=== PATIENT | female | born 1990 | race Two or more races ===

== ENCOUNTER 2016-12-21 22:48 | Outpatient (CLI) | payer OTHER ==
[2016-12-21 23:57] VITALS: BMI 35.5
== END 2016-12-21 23:57 | disposition home or self-care (01) ==
LOC: FBC 22:48 → FBCOUT 22:48
PROVIDERS: ATTEND Obstetrics & Gynecology
DX: O26.899 Other specified pregnancy related conditions, unspecified trimester (principal); Z3A.00 Weeks of gestation of pregnancy not specified; W19.XXXA Unspecified fall, initial encounter
CPT/HCPCS: 59025; 81002; G0463

== ENCOUNTER 2017-01-05 06:50 | Inpatient (IN) | payer OTHER ==
[2017-01-15] MEDS ORDERED: OXYTOCIN IN LR 500 ML IV ONE (08:00)
[2017-01-15] MEDS ORDERED: LACTATED RINGERS 1,000 ML IV PRN ×2 (08:00→23:04)
[2017-01-15] MEDS ORDERED: LIDOCAINE 1% (PRES FREE) 30 ML VIAL ONE (08:01)
[2017-01-15] MEDS ORDERED: MINERAL OIL 25 ML BOT ONE (08:01)
[2017-01-15] MEDS ORDERED: OXYTOCIN 10 UNITS/ML VIAL ONE (08:01)
[2017-01-15] MEDS ORDERED: LIDOCAINE Viscous 2% 15 ML UDCUP ONE (08:01)
[2017-01-15] MEDS ORDERED: IV START KIT ONE (08:01)
[2017-01-15] MEDS ORDERED: PUMP TUBING ONE (08:02)
[2017-01-15] MEDS: MISOPROSTOL 25 MCG TABLET VG SCH ×2 (08:41→12:42)
[2017-01-15 08:45] LABS: HEMATOCRIT 33.6 % (37.0-47.0); HEMOGLOBIN 10.9 gm/l (12.0-16.0); MEAN CELL VOLUME 82.6 fl (81.0-99.0); MEAN CORPUSCULAR HEMOGLOBIN 26.8 pg (27.0-31.0); MEAN CORPUSCULAR HGB CONC 32.4 g/dl (33.0-37.0); RED CELL DISTRIBUTION WIDTH 13.7 % (11.5-14.5)
[2017-01-15 08:54] VITALS: BMI 36.6
--- NOTE | 2017-01-15 11:08 | PCMAN ---
OB Admission Note - History : 2 Term: 1 : 0 Abortions (S&E): 0 Livin Gestational Age (weeks): 41 Days (#/7): 5 Admit Cervical Dilation:: fingertip Admit Cervical Effacement (%):: 50 Admit Station:: -3 Admit Presentaton:: vertex Membrane Status: Intact Contractions: No Heart Rate:: 135 Status:: Reactive, reassuring EFW:: 3200g Summary of Course:: 26yo , MAKENNA = 01/03/17; by LMP. Pt's first ultrasound was done at 13+3w. This was noted to suggest MAKENNA of 01/13/17. Pt then had f/u u/s done with MFM done 09/08/17. This showed gest age of 21+6 with makenna 01/13/17. Pt was counseled with regards to this discrepancy by Dr. Celaya and with a due date between 01/03/17 and 01/13/17. Pt was offered and accepted induction of labor for post-dates. Pt had been seen by [facility] for u/s at 21w. She was offered genetic amnio and declined. Pt had been followed for a high blood pressure reading in the last week. PIH labs were negative and BP have subsequently normalized. - Labs Blood Type: O (+) positive Rubella Status: Immune GBS Status: Negative - Physical Exam General: Afebrile, No Acute Distress Lungs: No Clear to Auscultation Bilaterally Abdomen: Obese, Other (gravid with efw 3200g), No Tenderness, No Distention Genitourinary: Other (cervix is FT/50/high/posterior/firm.) - Additional Comments Pt is 26yo at 41+5 by LMP / 40+2 by u/s dating. Pt has been counseled with regards to the dating discrepancy. Pt is admitted for post-dates induction. BP is wnl today. GBS negative. Pt will need cervical ripening. Recommended misoprostol vaginal, then pitocin. Induction risks including hyperstimulation, infection, or c/section have been reviewed. FHT is reassuring at this time. Pt does not have regular contractions at this time.
--- NOTE | 2017-01-15 17:32 | PDOC36 ---
Provider Note Subject: Induction note Note: Pt starting to feel more contractions. FHT: 150-160's, mod riki, + accels [place]: irregular contractions, however ctx q2-4min by report SVE: 3cm (by RN), memb intact s/p misoprostol x 2 continue induction - hold on pitocin for now as pt appears to be watson spontaneously
--- NOTE | 2017-01-15 22:28 | PCMDEL ---
Delivery Note - Delivery Gender: Male Presentation: Cephalic Position: OA Umbilical Cord: 3 Vessel Delayed Cord Clamping:: < 1-2 min 1 Minute Total: 9 5 Minute Total: 9 Placenta:: complete with 3VC EBL:: 150cc Perineum:: intact; there was a 1st degree right periurethral laceration Suture:: 3-O chromic Anesthesia/Meds:: local lidocaine injection Comments:: Pt was in tub x 2 hours for pain control. She then SROM and progressed quickly to FD/+3 station. Upon my arrival pt was ready to delivery. Baby was delivered to [facility]. Nuchal cord x 1 reduced. Shoulders delivered easily. Bulb suction applied. Baby to abdomen. After brief delay and milking, cord clamped and cut. Cord bloods collected. Placenta delivered complete with 3VC. 1st degree right periurethral lac repaired with 3-O Chromic. EBL 150cc Baby M 9/9 apgars.
[2017-01-15] MEDS ORDERED: MAGNESIUM HYDROXIDE 30 ML UDCUP PO PRN (23:04)
[2017-01-15] MEDS ORDERED: SENNOSIDES 8.6 MG TABLET PO PRN (23:04)
[2017-01-15] MEDS ORDERED: BENZOCAINE/MENTHOL 60 APPLIC/BOT TP PRN (23:04)
[2017-01-15] MEDS ORDERED: LANOLIN 50 APPLIC/7G TUBE TP PRN (23:04)
[2017-01-15] MEDS: OXYCODONE/ACETAMINOPHEN 5/325 MG TABLET PO PRN (23:54)
[2017-01-15] MEDS: IBUPROFEN 800 MG TABLET PO PRN (23:54)
[2017-01-16] MEDS: OXYCODONE/ACETAMINOPHEN 5/325 MG TABLET PO PRN ×3 (03:48→20:03)
[2017-01-16] MEDS: IBUPROFEN 800 MG TABLET PO PRN ×3 (05:43→20:03)
[2017-01-16 06:16] LABS: HEMATOCRIT 31.8 % (37.0-47.0); HEMOGLOBIN 10.3 gm/l (12.0-16.0)
[2017-01-16] MEDS: MISOPROSTOL 25 MCG TABLET VG SCH (08:16)
--- NOTE | 2017-01-16 10:06 | PDOC44 ---
- Subjective Day: 1 Doing well. No complaints. Reports Flatus, Reports Pain Tolerable, Reports , Reports Lochia Moderate, Reports Tolerating Regular Diet - Objective Temp Pulse Resp BP Pulse Ox 98.1 F 63 16 113/74 01/16/17 08:00 01/16/17 08:00 01/16/17 08:00 01/16/17 08:00 Lab Results 01/16/17 05:45 Hgb 10.3 L Hct 31.8 L Current Medications Generic Name Dose Route Start Last Admin Trade Name Freq PRN Reason Stop Dose Admin Benzocaine/Menthol 1 applic 01/15/17 23:04 01/16/17 03:48 Dermoplast TP 1 bot PRN PRN Administration Patient Comfort Docusate Sodium 100 mg 01/15/17 23:04 Colace PO DAILY PRN Comfort Emollient Ointment 1 applic 01/15/17 23:04 [id number] TP PRN PRN sore nipples Lactated Ringer's 1,000 mls @ 100 mls/hr 01/15/17 23:04 Lactated Ringers IV .Q10H PRN Titrate per clinical situation Ibuprofen 800 mg 01/15/17 23:04 01/16/17 05:43 Motrin PO 800 mg Q6H PRN Administration Pain (Mild) Magnesium Hydroxide 30 ml 01/15/17 23:04 Milk Of Magnesia PO BEDTIME PRN Constipation Oxycodone/Acetaminophen 1 - 2 tab 01/15/17 23:04 01/16/17 03:48 Percocet 5/325 PO 1 tab Q4H PRN Administration Pain (Moderate) Senna 17.2 mg 01/15/17 23:04 Senokot PO BEDTIME PRN Comfort Sodium Chloride 10 ml 01/15/17 23:04 Normal Saline 10ml Flush IV PRN PRN IV Flush Sodium Chloride 10 ml 01/16/17 09:00 Normal Saline 10ml Flush IV Q8HR MATTY - Physical Exam General: Afebrile Psych/Mental Status: Mood/Affect Appropriate, Judgment/Insight Intact, Bonding Well Neurological: Grossly Intact, Alert, Oriented x 4 HEENT: Atraumatic, PERRLA, EOMI, Mucous membr. moist/pink Lungs: Clear to Auscultation Bilaterally, Normal Air Movement Cardiovascular: Regular Rate and Rhythm, Normal S1, Normal S2 Breast: Soft, Skin intact, Nipples Intact Fundus: Firm, Midline, At Umbilicus Abdomen: Normal Bowel Sounds Lochia: Moderate Extremities: Full ROM Skin: Normal Color, Warm, Dry, Intact Disposition: Anticipate DC Home Tomorrow
[2017-01-16] MEDS: DOCUSATE SODIUM 100 MG CAPSULE PO PRN (22:14)
[2017-01-17] MEDS: OXYCODONE/ACETAMINOPHEN 5/325 MG TABLET PO PRN ×3 (05:41→16:44)
[2017-01-17] MEDS: IBUPROFEN 800 MG TABLET PO PRN ×2 (05:42→11:56)
[2017-01-17] MEDS: DOCUSATE SODIUM 100 MG CAPSULE PO PRN (07:53)
--- NOTE | 2017-01-17 10:36 | PDOC39B ---
Hospital Course: ADMIT DATE: 01/15/17 DISCHARGE DATE: 01/17/17 ADMISSION DIAGNOSES: Post-dates induction of labor. PROCEDURES: Spontaneous vaginal HISTORY OF PRESENT ILLNESS: 26 year old G2 T1 L1 at 41 weeks 5 days presenting for induction. HOSPITAL COURSE: The patient responded well to misoprostol. She labored rapidly partly in the jacuzzi. She had an uncomplicated of a baby boy at 22:07 ON 01/15/17. Ebl 150CC. Weight 7lb10. Some anterior stitches needed. Mother and baby did well in period. By day of discharge the patient is ambulating, eating, voiding, and passing flatus without difficulty. Pain is controlled and lochia is appropriate. She is . - Physical Exam Vital Signs: Temp Pulse Resp BP Pulse Ox 97.7 F 87 16 126/74 01/17/17 08:09 01/17/17 08:09 01/17/17 08:09 01/17/17 08:09 General: Afebrile Psych/Mental Status: Mood/Affect Appropriate, Bonding Well Neurological: Oriented x 4, Normal Speech Lungs: Clear to Auscultation Bilaterally Cardiovascular: Regular Rate and Rhythm Fundus: Firm Abdomen: Normal Bowel Sounds Lochia: Light Skin: Normal Color, Warm, Dry - Discharge Diagnosis (1) (normal spontaneous vaginal delivery) Status: AcuteAssessment/Plan: Successful induction of labor. - Discharge Plan Condition: Good Disposition: Home Prescriptions: Ibuprofen [IBUPROFEN 800 MG TABLET (SHF)] 800 mg PO Q6H PRN #100 PRN Reason: Pain (Mild) Oxycodone HCl/Acetaminophen [PERCOCET 5/325 MG TABLET (SHF)] 1 - 2 tab PO Q4H PRN #30 PRN Reason: Pain (Moderate) Follow-Up: Lenny More MD [Staff Physician] - In 4 weeks
[2017-01-17 14:11] VITALS: BP 129/75
== END 2017-01-17 18:24 | disposition home or self-care (01) | DRG 775 ==
LOC: EDSTATUS 06:50 → FBC 01-15 06:51 → UNDOADMIN 01-15 06:51 → FBC 01-15 07:09
PROVIDERS: ADMIT Obstetrics & Gynecology; ATTEND Obstetrics & Gynecology
PROC: 10E0XZZ Delivery of Products of Conception, External Approach (ICD-10-PCS; principal; 2017-01-15)
PROC: 3E0P7GC Introduction of Other Therapeutic Substance into Female Reproductive, Via Natural or Artificial Opening (ICD-10-PCS; 2017-01-15)
DX: O48.0 Post-term pregnancy (principal); O70.0 First degree perineal laceration during delivery; O69.81X0 Labor and delivery complicated by cord around neck, without compression, not applicable or unspecified; Z37.0 Single live birth; Z3A.41 41 weeks gestation of pregnancy

== ENCOUNTER 2017-01-05 17:18 | Outpatient (CLI) | payer OTHER ==
[2017-01-05 18:00] VITALS: BMI 34.6
[2017-01-05 18:24] LABS: ABSOLUTE NEUTROPHIL COUNT 8.9 K/mm3 (1.8-7.7); BASO % 0.3 % (0.2-1.0); EOS # 0.2 (0.0-0.5); EOS % 1.6 % (0.9-2.9); HEMATOCRIT 33.9 % (37.0-47.0); HEMOGLOBIN 11.1 gm/l (12.0-16.0); IMM NEUT # 0.1 K/mm3 (0-0.2); IMM NEUT% 0.7 % (0-1); LYMPH # 2.3 (1.0-4.8); LYMPH % 18.9 % (15-45); MEAN CELL VOLUME 82.1 fl (81.0-99.0); MEAN CORPUSCULAR HEMOGLOBIN 26.9 pg (27.0-31.0); MEAN CORPUSCULAR HGB CONC 32.7 g/dl (33.0-37.0); MEAN PLATELET VOLUME 9.9 fl (7.4-10.4); MONO # 0.8 (0.0-0.8); MONO % 6.2 % (4-12); NEUT % 72.3 % (43-75); PLATELET COUNT 304 K/mm3 (130-400); RED CELL DISTRIBUTION WIDTH 13.5 % (11.5-14.5)
[2017-01-05 19:24] LABS: ALB/GLOB RATIO 0.9 (>1.0); ALBUMIN 3.2 gm/dL (3.5-5.7); URIC ACID 4.2 mg/dL (2.3-7.6)
[2017-01-06 00:04] LABS: CREATININE,RANDOM URINE 138 mg/dL
== END 2017-01-05 20:58 | disposition home or self-care (01) ==
LOC: FBCOUT 17:18 → FBC 17:52 → FBCOUT 20:58
PROVIDERS: ATTEND Obstetrics & Gynecology
DX: O47.9 False labor, unspecified (principal); Z3A.00 Weeks of gestation of pregnancy not specified
CPT/HCPCS: 85025; 80053; 83615; 84550; 84156; 59025; G0463